=== PATIENT | male | born 1995 | race Caucasian/White ===

== ENCOUNTER 2016-12-16 20:01 | Emergency (ER) | payer SELFPAY ==
[2016-12-16] MEDS ORDERED: IPRATROPIUM/ALBUTEROL 3 ML DEYVIAL IH ONE (21:08)
[2016-12-16 22:13] VITALS: BP 124/60; PULSE 57; RESP 16; TEMP 98.1; O2SAT 97
--- NOTE | 2016-12-16 22:18 | EDPHY ---
H & P Time Seen by Provider: 12/16/16 20:35 HPI/ROS: CHIEF COMPLAINT: Shortness of breath HISTORY OF PRESENT ILLNESS: 21-year-old male presents to the emergency department with ongoing shortness of breath especially to his right chest intermittently over last several weeks. The patient has a history of asthma. He uses typically only albuterol inhaler. He has not followed up with primary care provider in a while. He does not take cortical steroids. The patient notes that he has had numerous pulmonary infections and was concerned about possible cystic fibrosis. He denies fevers or chills. Denies night sweats. Denies recent travel. REVIEW OF SYSTEMS: Constitutional: No fever, no chills. Eyes: No double or blurry vision. ENT: No sore throat. Respiratory: Shortness of breath as above. No cough. Cardiac: No chest pain. Gastrointestinal: No abdominal pain, vomiting or diarrhea. Genitourinary: No dysuria. Musculoskeletal: No neck or back pain. Skin: No rashes. Neurological: No headache. Past Medical/Surgical History: Asthma Social History: Single Smoking Status: Never smoked Physical Exam: General Appearance: Alert, no distress. 98% on room air. Eyes: Pupils equal and round. Extraocular motions are all intact. ENT: Mouth: Mucous membranes moist. Respiratory: No wheezing, rhonchi, or rales, lungs are clear to auscultation. Cardiovascular: Regular rate and rhythm. Gastrointestinal: Abdomen is soft and nontender, no masses, no rebound or guarding, bowel sounds normal. Neurological: Alert and oriented x 3, cranial nerves II through XII grossly intact Skin: Warm and dry, no rashes. Musculoskeletal: Nontender to palpate along the cervical, thoracic or lumbar spine. Neck is supple. Extremities: Full range of motion and no peripheral edema. Psychiatric: Patient is oriented X 3, there is no agitation. Constitutional: Initial Vital Signs Temperature (C) 36.4 C 12/16/16 20:05 Heart Rate 59 L 12/16/16 20:05 Respiratory Rate 18 12/16/16 20:05 Blood Pressure 142/78 H 12/16/16 20:05 O2 Sat (%) 98 12/16/16 20:05 O2 Delivery Mode Room Air Allergies/Adverse Reactions: cat dander Allergy (Intermediate, Verified 12/16/16 20:08) Dyspnea Home Medications: Medication Instructions Recorded Albuterol [Proventil Inhaler HFA 1 - 2 puffs IH Q4PRN PRN #1 mdi 12/16/16 (*)] Medical Decision Making - Diagnostics Imaging Results: Chest x-ray reveals no acute pulmonary disease. Imaging: I viewed and interpreted images myself ED Course/Re-evaluation: Patient has a normal examination. He does feel short of breath. I doubt he has a pulmonary embolism. He does not have any pleuritic chest pain. He is not tachycardic. He has no recent travel. The patient was given a DuoNeb and was feeling much better. His lungs remain clear to auscultation. Patient was encouraged to continue his albuterol inhaler. He was given primary care referral as well as pulmonology referral. Differential Diagnosis: Shortness of breath including but not limited to pulmonary infectious process, COPD, asthma, pulmonary embolus and congestive heart failure. - Data Points Medications Given: Discontinued Medications Albuterol/Ipratropium (Duoneb) 3 ml IH EDNOW ONE Stop: 12/16/16 21:09 Last Admin: 12/16/16 21:13 Dose: 3 ml Departure - Departure Disposition: Home, Routine, Self-Care Clinical Impression: Exacerbation of asthma Qualifiers: Asthma severity: mild Asthma persistence: unspecified Qualified Code(s): J45.901 - Unspecified asthma with (acute) exacerbation Condition: Good Instructions: Dyspnea (ED) Additional Instructions: Albuterol inhaler 2 puffs every 4 hours for 1 week and then as needed. Follow up with primary care provider to recheck. Return to the emergency department if you feel short of breath or if you feel worse in any way. Referrals: Jojo Hobbs MD [Medical Doctor] - As per Instructions (Primary care provider insulation and flooring assembler) Nelson Thomas MD [[facility] [place] - As per Instructions (Primary care provider in [place]) Alexandro Reyes MD [Medical Doctor] - As per Instructions (Science Interpreter) Prescriptions: Albuterol [Proventil Inhaler HFA (*)] 1 - 2 puffs IH Q4PRN PRN #1 mdi PRN Reason: P.r.n. dyspnea
== END 2016-12-16 22:30 | disposition home or self-care (01) ==
DX: J45.901 Unspecified asthma with (acute) exacerbation (principal)

== ENCOUNTER → 2018-07-25 | Outpatient (CLI) | payer OTHER | LOC: BMCIMAGING 11:52 ==